=== PATIENT | male | born 1995 | race Caucasian/White ===

== ENCOUNTER 2018-11-03 09:07 | Emergency (ER) | payer OTHER ==
[~2018-11-03] VITALS: Ht 177.8 cm; Wt 109.0 kg
[2018-11-03] MEDS ORDERED: KETOROLAC 30MG/ML VIAL IM ONE (12:15)
[2018-11-03] MEDS ORDERED: METHOCARBAMOL 500MG TABLET PO ONE (12:15)
[2018-11-03 12:49] VITALS: BP 125/82
== END 2018-11-03 12:47 | disposition home or self-care (01) ==
LOC: ER 09:07
DX: S39.012A Strain of muscle, fascia and tendon of lower back, initial encounter (principal); F17.200 Nicotine dependence, unspecified, uncomplicated; X50.1XXA Overexertion from prolonged static or awkward postures, initial encounter; Y93.89 Activity, other specified; Y92.9 Unspecified place or not applicable; Z98.890 Other specified postprocedural states
CPT/HCPCS: 96372; 99283; J1885